=== PATIENT | male | born 1975 | race Caucasian/White ===

== ENCOUNTER 2020-08-03 18:23 | Emergency (ER) | payer OTHER, SELFPAY ==
[2020-08-03 19:19] VITALS: BP 140/98; PULSE 120; RESP 20; TEMP 36.3; O2SAT 98
[2020-08-03 19:41] LABS: Basophils Absolute Auto 0.1 K/mm3 (0.0-0.1); Basophils Percent Auto 0.6 % (0.2-1.2); Eosinophils Absolute Auto 0.4 K/mm3 (0-0.3); Eosinophils Percent Auto 5.2 % (0-4.4); Hematocrit 49.1 % (42.0-52.0); Hemoglobin 17.3 g/dL (14.0-18.0); Immature Granulocyte Absolute 0.02 K/mm3 (0.00-0.031); Immature Granulocyte Percent A 0.3 % (0-0.5); Lymphocytes Absolute Auto 2.52 K/mm3 (0.9-3.2); Lymphocytes Percent Auto 31.9 % (18.3-44.2); Mean Corpuscular HGB Conc 35.2 g/dl (32-36); Mean Platelet Volume 10.3 fl (7.4-10.4); Monocytes Absolute Auto 0.4 K/mm3 (0.1-0.6); Monocytes Percent Auto 5.1 % (2.6-8.5); Neutrophils Absolute Auto 4.5 K/mm3 (1.3-6.7); Neutrophils Percent Auto 56.9 % (45.5-73.1); Platelet Count Result 189 k/mm3 (150-375); Red Blood Count 5.58 M/mm3 (4.6-6.20); Red Cell Distribution Width 12.7 % (11.5-14.5); White Blood Count 7.9 K/mm3 (4.5-10.0)
[2020-08-03 19:53] LABS: Alanine Aminotransferase 154 U/L (4-50); Alkaline Phosphatase 97 U/L (38-126); Anion Gap 10 mmol/L (8-16); Aspartate Amino Transferase 70 U/L (17-59); Bilirubin,Total 1.3 mg/dL (0.2-1.3); Blood Urea Nitrogen 13 mg/dL (9-20); Calcium 10.2 mg/dL (8.4-10.2); Carbon Dioxide 28 mmol/L (22-30); Chloride 103 mmol/L (98-107); Estimated CRCL calculation 104 ml/min; Estimated Glomerular Filt Rate > 60; Ethanol < 10 mg/dL (<10); Glucose 149 mg/dL (75-110); Potassium 4.4 mmol/L (3.4-5.0); Sodium 141 mmol/L (137-145)
[2020-08-03 23:02] VITALS: BP 135/87; PULSE 70; RESP 16; TEMP 36.5; O2SAT 98
[2020-08-04] VITALS (11 sets, daily range): BP systolic 127–155; BP diastolic 68–99; PULSE 75–106; RESP 8–19; TEMP 36.6; O2SAT 97–100
--- NOTE | 2020-08-04 00:14 | PC.NURSE ---
pt blocking door from inside of room 1 at this time. ed staff unable to enter room at this time. research greenhouse supervisor notified at this time.
--- NOTE | 2020-08-04 00:18 | PC.NURSE ---
patient opened door at this time.
--- NOTE | 2020-08-04 00:36 | ED.PSYCH ---
HPI - Psych General Chief Complaint: Psychiatric Symptoms Stated Complaint: behavioral issues Time Seen by Provider: 08/04/20 00:35 History of Present Illness HPI Narrative: Pt c/o auditory hallucinations and not being able to sleep x 3 days. Pt also states that people are after me referring to how many friend requested him on facebook and how many hits his profile got on [employer]. Denies homicidal or suicidal ideations. Context: significant life stressor Related Data Allergies Allergy/AdvReac Type Severity Reaction Status Date / Time amoxicillin Allergy Mild Unverified 09/03/09 12:35 ibuprofen Allergy Mild Unverified 09/03/09 12:35 tramadol Allergy Mild Unverified 09/03/09 12:35 Review of Systems Review of Systems: All systems reviewed & are unremarkable except as noted in HPI and below Constitutional: Constitutional: Denies body ache(s), Denies chills, Denies excessive sweating, Denies fatigue, Denies fever(s), Denies headache(s), Denies lethargy, Denies malaise, Denies weakness and Denies weight loss Eyes: Eyes: Denies blurry vision, Denies change in vision and Denies loss of vision ENT: Denies dizziness, Denies ear discharge, Denies headache(s), Denies lip swelling, Denies epistaxis, Denies nasal congestion, Denies neck pain, Denies throat swelling and Denies tongue swelling Cardiovascular: Cardiovascular: Denies chest pain, Denies chest pain at rest, Denies chest pain with activity, Denies diaphoresis, Denies rapid heart rate, Denies edema, Denies irregular heart rhythm, Denies lightheadedness, Denies palpitations, Denies dyspnea and Denies dyspnea on exertion Respiratory: Respiratory: Denies chest congestion, Denies cough, Denies hemoptysis, Denies dyspnea and Denies dyspnea on exertion Gastrointestinal: Gastrointestinal: Denies abdominal pain, Denies melena, Denies hematochezia, Denies diarrhea, Denies nausea, Denies vomiting and Denies hematemesis Musculoskeletal: Musculoskeletal: Denies abnormal gait, Denies deformity, Denies joint swelling, Denies limited range of motion, Denies neck pain and Denies numbness Neurologic: Denies Abnormal speech present, Denies abnormal gait, Denies confusion, Denies dizziness, Denies headache(s), Denies focal weakness, Denies loss of vision, Denies numbness, Denies Other visual disturbances, Denies Sensory deficit (Neuro) and Denies weakness Psychiatric: Psychiatric: Denies homicidal ideation and Denies suicidal ideation Endocrine: Endocrine: Denies cold intolerance, Denies excessive sweating, Denies fatigue, Denies heat intolerance and Denies palpitations Hematologic/Lymphatic: Hematologic/Lymphatic: Denies easy bleeding and Denies easy bruising Allergic/Immunologic: Allergic/Immunologic: Denies lip swelling, Denies throat swelling and Denies tongue swelling [facility] Social History Social History Gender identity (if verbalized by the patient): Male Exam Const: General: healthy appearing, comfortable, well developed, alert and awake; No confusion Orientation/consciousness: oriented to person, oriented to place, oriented to time and No confusion Limitations: no limitations HENMT: Head: normal to inspection, normocephalic and atraumatic Ears: hearing grossly normal bilaterally, TM normal on the right and TM normal on the left General nose exam: Normal external nose present, Normal nares present and No nasal discharge present Face and sinus: normal facial exam Mouth: Yes Normal oral and palatal mucosa present, Yes lip normal, Yes tongue normal and Yes oropharynx normal Throat: posterior oropharynx normal, tonsils normal and uvula midline Eyes: General: appearance normal, both eyes and all related structures Pupils: Equal, round and reactive pupils present EOM: EOMs intact bilaterally Neck: Neck: normal visual inspection, full ROM, no lymphadenopathy and no meningeal signs Chest: Chest palpation & inspection: normal inspection of the chest Resp: Effort & Inspection: normal res
--- NOTE | 2020-08-04 01:06 | PC.NURSE ---
pt refusing to give urine sample at this time.
--- NOTE | 2020-08-04 02:30 | PC.NURSE ---
pt attempted to void in bathroom at this time, was unable. pt refusing catheter.
--- NOTE | 2020-08-04 03:47 | PC.NURSE ---
pt still unable to void. continues to refuse straight cath. edp made aware.
[2020-08-04 04:45] LABS: Barbiturate Screen Urine Positive (Negative); Benzodiazepines Screen Urine Negative (Negative)
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
[2020-08-04 05:01] LABS: Add Urine Microscopic? YES; Amorphous Sediment Urine Few; Appearance Urine Clear (Clear); Bilirubin Urine 1+ (Negative); Blood Urine Negative (Negative); Cannabinoid Screen Urine Positive (Negative); Cocaine Screen Urine Negative (Negative); Color Urine Amber (Yellow); Glucose Urine UA 1+ mg/dL (Negative); Ketones Urine Negative (Negative); Leukocyte Esterase Ur Negative LEU/UL (Negative); Methadone Screen Urine Negative (Negative); Mucus Urine Heavy /lpf; Nitrate Urine Negative (Negative); Opiate Screen Urine Positive (Negative); Phencyclidine Screen Urine Negative (Negative); Protein Urine 2+ mg/dL (Negative); WBC Urine 0-3 /hpf
[2020-08-04 05:06] LABS: Amphetamine Screen Urine Positive (Negative)
--- NOTE | 2020-08-04 07:10 | PC.NURSE ---
WHILE GETTING PT REPORT, PT IN ROOM WITH 2 SECURITY OFFICERS BACKED INTO A CORNER BARRICADED IN WITH X2 CHAIRS THAT WERE NOT REMOVED PRIOR TO THIS SHIFT. REFUSING TO ALLOW STAFF TO ASSESS HIM, REFUSING TO SIT ON THE BED. THREATENING STAFF.
--- NOTE | 2020-08-04 07:28 | PC.NURSE ---
VERBAL ORDER FROM TORI POWERS TO ADMINISTER 2MG ATIVAN INSTEAD OF 1MG IM. PT HAS CORNERED HIMSELF IN THE ROOM, TORI POWERS AT BEDSIDE ATTEMPTING TO CONVINCE PT TO ACCEPT IM ATIVAN.
--- NOTE | 2020-08-04 07:35 | PC.NURSE ---
PD AT BEDSIDE, PT STILL THREATENING STAFF WITH CHAIRS IN CORNER.
--- NOTE | 2020-08-04 07:35 | PC.NURSE ---
TORI POWERS VERBAL ORDER TO CALL MARYLOU ZAVALA TO HELP RESTRAIN PT. PD CONTACTED BY MANAGER PATIENT SUSIE AT THIS TIME.
--- NOTE | 2020-08-04 07:36 | PC.NURSE ---
SAUL RATLIFF X3, X2 PD, FOREMAN/PILE DRIVING AND ERECTION ALYSSA, MYSELF, JOSE, AND RASHID AKBAR AT BEDSIDE RESTRAINING PT WHO IS ATTEMPTING TO HARM STAFF.
[2020-08-04] MEDS: diphenhydrAMINE HCl INJ 50 MG/ML VIAL IM (07:46)
[2020-08-04] MEDS: LORazepam INJ (*CRX) 2 MG/ML VIAL IM (07:46)
[2020-08-04] MEDS: HALOPERIDOL LACTATE 5 MG/ML VIAL IM (07:46)
--- NOTE | 2020-08-04 08:08 | ECG_ITS ---
Measurements Intervals [place] Rate: 89 P: 61 [place]: 142 QRS: 55 QRSD: 122 T: 60 QT: 382 QTc: 467 Interpretive Statements SINUS RHYTHM INCOMPLETE RIGHT BUNDLE BRANCH BLOCK NONSPECIFIC ST ELEVATION IN ANTERIOR LEADS BORDERLINE ECG Electronically Signed On 08-04-2020 8:58:46 CDT by Stanley Law D.O.
--- NOTE | 2020-08-04 08:24 | PC.NURSE ---
covid swab sent to lab
--- NOTE | 2020-08-04 08:26 | PC.NURSE ---
chaparro from crisis states that she cannot begin calling for placement on pt until he is out of the restraints.
--- NOTE | 2020-08-04 08:46 | PC.NURSE ---
Addendum entered by Esteban Richter RN 08/04/20 08:46: TIME 0737 THAT CHAIRS AND SHOES REMOVED. Original Note: CHAIR REMOVED FROM PT ROOM, SHOES TAKEN FROM PT AND LOCKED WITH BELONGINGS. TECHNOLOGY EDUCATION INSTRUCTORNAOMIE BAILEY
[2020-08-04] MEDS: SODIUM CHLORIDE 0.9% IV 1,000 ML 999 ML IV CONT ×2 (08:59→09:43)
--- NOTE | 2020-08-04 09:45 | PC.NURSE ---
While assessing pt rom, attempted to remove restraints, upon removing the L leg restraint, pt waking up, kicking at staff, says take me out, see what happens. rom and psm assessed at this time, all extremities wnl.
--- NOTE | 2020-08-04 11:05 | PC.NURSE ---
PT RESTRAINTS REMOVED AT THIS TIME, NAOMIE MCMILLAN AND SECURITY AT BEDSIDE TO ASSIST. ALL EXTREMITIES, PSM INTACT. REPORT GIVEN BEDSIDE TO NAOMIE MCMILLAN, HE HAS ASSUMED PT CARE.
--- NOTE | 2020-08-04 11:20 | PC.NURSE ---
Received report from NAOMIE Orellana at this time.
--- NOTE | 2020-08-04 11:26 | PC.NURSE ---
Pt asleep in bed, restrained removed by previous RN. security at bedside. Pt continues to be on cardiac/spo2 monitor. Will continue to monitor.
--- NOTE | 2020-08-04 12:46 | PC.NURSE ---
Pt asleep in bed, staff sitter at bedside. Lunch ordered for pt and set on counter in room for if pt wakes up.
--- NOTE | 2020-08-04 14:28 | PC.NURSE ---
block trader took call from Mitali from Crisis called, gave fax number to Federal parole office to fax pt chart ([phone]) as pt is in violation of federal parole. Chart faxed per chart RN request.
--- NOTE | 2020-08-04 15:20 | PC.NURSE ---
Pt asleep in room, no s/s of distress, chest rise/fall evenly. Security at bedside for pt safety. Will continue to monitor.
--- NOTE | 2020-08-04 17:31 | PC.NURSE ---
Pt remains asleep with out distress. Staff sitter remains at bedside. Will continue to monitor.
[2020-08-04 20:04] LABS: SARS-CoV-2 RNA PCR Negative
--- NOTE | 2020-08-04 20:25 | PC.NURSE ---
Pt asleep in bed, staff at bedside. no s/s of distress. will continue to monitor.
--- NOTE | 2020-08-04 21:00 | PC.NURSE ---
Pt awoke and ripped his IV out stating I dont need this. Pt given lunch tray and soda. Security remains outside pt room. Will continue to monitor.
--- NOTE | 2020-08-04 21:51 | PC.NURSE ---
attempting to contact pt significant other without success. pt gave [phone] for contact info to girlfriend
--- NOTE | 2020-08-04 22:55 | PC.NURSE ---
PT ASLEEP IN BED, SPOKE WITH PT FRIEND PER PT REQUEST TO LET HER KNOW HE IS IN THE ED. STAFF REMAIN AT BEDSIDE.
--- NOTE | 2020-08-05 03:35 | PC.NURSE ---
PT RESTING QUIETLY IN BED WITH EYES CLOSED, NO ACUTE DISTRESS NOTED. 2 SECURITY GUARDS REMAIN AT THE DOORWAY.
--- NOTE | 2020-08-05 05:15 | PC.NURSE ---
NO ACUTE DISTRESS NOTED; PT RESTING QUIETLY IN BED WITH EYES CLOSED. TRAILER DRIVER REMAINS AT DOORWAY.
[2020-08-05 06:34] VITALS: BP 170/79; PULSE 94; RESP 18; TEMP 37.3; O2SAT 99
--- NOTE | 2020-08-05 08:38 | PC.NURSE ---
Addendum entered by Vane Yang RN 08/05/20 08:41: REPORT RECEIVED AT 0715. Original Note: REPORT RECEIVED AND CARE ASSUMED. PT IS SLEEPING AT THIS TIME. RESPS EVEN AND NONLABORED. LIGHTS DIMMED. SECURITY OFFICERS X2 REMAIN AT BEDSIDE FOR OBSERVATION. AWAITING CALL BACK FROM BRENDA FROM CRISIS REGARDING FEDERAL DISPOSITION OF THE PATIENT
[2020-08-05 11:30] VITALS: BP 106/75; PULSE 86; RESP 16; O2SAT 100
[2020-08-05 15:15] VITALS: BP 122/81; PULSE 88; RESP 18; TEMP 36.7; O2SAT 98
--- NOTE | 2020-08-05 19:15 | PC.NURSE ---
PT REFUSING NEW SET OF VITAL SIGNS.
--- NOTE | 2020-08-05 20:00 | PC.NURSE ---
REPORT TO TATO AKBAR. CARE TRANSFERRED
--- NOTE | 2020-08-05 23:04 | PC.NURSE ---
per Eric at [facility], a CBC and CMP is needed to be redrawn since last labs were over 24 hrs old. He states a new ua / uds is not needed. I repeated this back to him & he verbalized it was correct. Dr. Mosqueda made aware, vorb for cbc, cmp. Orders placed in computer.
[2020-08-05 23:23] LABS: Basophils Percent Auto 0.4 % (0.2-1.2); Eosinophils Absolute Auto 0.2 K/mm3 (0-0.3); Eosinophils Percent Auto 2.8 % (0-4.4); Hematocrit 43.7 % (42.0-52.0); Hemoglobin 15.8 g/dL (14.0-18.0); Immature Granulocyte Absolute 0.01 K/mm3 (0.00-0.031); Immature Granulocyte Percent A 0.1 % (0-0.5); Lymphocytes Percent Auto 29.1 % (18.3-44.2); Mean Corpuscular HGB Conc 36.2 g/dl (32-36); Mean Corpuscular Hemoglobin 31.3 pg (26-34); Mean Corpuscular Volume 86.5 fl (80-100); Mean Platelet Volume 10.2 fl (7.4-10.4); Monocytes Absolute Auto 0.4 K/mm3 (0.1-0.6); Monocytes Percent Auto 4.6 % (2.6-8.5); Neutrophils Absolute Auto 4.8 K/mm3 (1.3-6.7); Platelet Count Result 154 k/mm3 (150-375); Red Blood Count 5.05 M/mm3 (4.6-6.20); Red Cell Distribution Width 12.4 % (11.5-14.5); White Blood Count 7.6 K/mm3 (4.5-10.0)
[2020-08-05 23:34] LABS: Alanine Aminotransferase 113 U/L (4-50); Albumin Level 4.1 g/dL (3.5-5.1); Alkaline Phosphatase 78 U/L (38-126); Anion Gap 10 mmol/L (8-16); Aspartate Amino Transferase 68 U/L (17-59); Bilirubin,Total 1.3 mg/dL (0.2-1.3); Blood Urea Nitrogen 10 mg/dL (9-20); Calcium 9.3 mg/dL (8.4-10.2); Carbon Dioxide 23 mmol/L (22-30); Chloride 104 mmol/L (98-107); Estimated CRCL calculation 135 ml/min; Estimated Glomerular Filt Rate > 60; Glucose 86 mg/dL (75-110); Potassium 4.1 mmol/L (3.4-5.0); Sodium 137 mmol/L (137-145)
[2020-08-05 23:36] VITALS: BP 112/73; PULSE 101; RESP 20; TEMP 37; O2SAT 98
--- NOTE | 2020-08-06 00:53 | PC.NURSE ---
maria g from [facility] requested to have new results faxed to him. after he gets that he will try to get a bed, however the dr that is press set up person emily does not answer the phone so they wont have an excepting until around 0620 in the morning.
--- NOTE | 2020-08-06 04:29 | PC.NURSE ---
Staff member from [facility] asking that we get an updated petition completed & faxed to them prior to leaving this facility.
[2020-08-06 07:08] VITALS: BP 128/97; PULSE 89; RESP 18; TEMP 37.5; O2SAT 97
[2020-08-06 07:11] VITALS: BP 128/97; PULSE 89; RESP 18; O2SAT 97
== END 2020-08-06 07:39 ==
PROVIDERS: Emergency Medicine; Emergency Provider Emergency Medicine
DX: F23 Brief psychotic disorder (principal); F22 Delusional disorders; Z20.828 Contact with and (suspected) exposure to other viral communicable diseases
CPT/HCPCS: 36415; 80053; 80307; 81001; 84443; 85025; 87635; 93005; 96360; 96361; 96372; 99285; C9803; J1200; J1630; J2060; J7030; U0003

== ENCOUNTER 2020-11-14 14:48 | Emergency (ER) | payer OTHER, SELFPAY ==
[2020-11-14 14:50] VITALS: BP 155/99; PULSE 88; RESP 18; TEMP 37; O2SAT 99
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
--- NOTE | 2020-11-14 14:55 | ECG_ITS ---
Measurements Intervals [place] Rate: 84 P: 52 [place]: 144 QRS: 16 QRSD: 101 T: 47 QT: 371 QTc: 439 Interpretive Statements SINUS RHYTHM INCOMPLETE RIGHT BUNDLE BRANCH BLOCK BASELINE ARTIFACT- I, II, AVR BORDERLINE ECG Electronically Signed On 11-15-2020 8:25:12 FORENSIC IDENTIFICATION SPECIALIST by Stanley Law D.O.
[2020-11-14 15:22] LABS: Basophils Absolute Auto 0.03 K/mm3 (0.00-0.10); Basophils Percent Auto 0.4 % (0.0-1.0); Eosinophils Absolute Auto 0.16 K/mm3 (0.02-0.50); Eosinophils Percent Auto 2.3 % (1.0-6.0); Hematocrit 44.5 % (40.0-54.0); Hemoglobin 15.3 g/dL (14.0-18.0); Immature Granulocyte Absolute 0.02 K/mm3 (0.00-0.00); Immature Granulocyte Percent A 0.3 % (0.0-0.0); Lymphocytes Absolute Auto 2.59 K/mm3 (1.10-4.50); Mean Corpuscular HGB Conc 34.4 g/dL (32.0-36.0); Mean Corpuscular Volume 90.1 fL (78.0-102.0); Mean Platelet Volume 9.8 fl (8.7-11.0); Monocytes Absolute Auto 0.44 K/mm3 (0.10-0.90); Monocytes Percent Auto 6.5 % (2.0-11.0); Neutrophils Absolute Auto 3.6 K/mm3 (1.7-7.2); Neutrophils Percent Auto 52.5 % (50.0-70.0); Platelet Count Result 228 K/mm3 (150-420); Red Blood Count 4.94 M/mm3 (4.70-6.10); Red Cell Distribution Width 12.2 % (11.6-14.4); White Blood Count 6.8 K/mm3 (4.8-10.8)
[2020-11-14 15:42] LABS: Alanine Aminotransferase 107 U/L (16-63); Albumin Level 4.3 g/dL (3.4-5.0); Alkaline Phosphatase 89 U/L (46-116); Anion Gap 10 mmol/L (8-16); Aspartate Amino Transferase 48 U/L (15-37); Bilirubin,Total 0.9 mg/dL (0.00-1.00); Calcium 9.8 mg/dL (8.5-10.1); Carbon Dioxide 26 mmol/L (21-32); Chloride 101 mmol/L (98-108); Estimated CRCL calculation 101 ml/min; Estimated Glomerular Filt Rate > 60; Glucose 94 mg/dL (70-99); Osmolality Calculated 283 mOsm/kg (285-295); Potassium 3.5 mmol/L (3.5-5.1); Salicylate 3.6 mg/dL (2.8-20.0); Sodium 137 mmol/L (136-145); Thyroid Stimulating Hormone 1.63 uIU/mL (0.36-3.74); Total Protein 9.4 g/dL (6.4-8.2)
[2020-11-14 15:50] LABS: Acetaminophen < 2 ug/mL (10-30); Ethanol < 3 mg/dL (0-6)
[2020-11-14 15:55] LABS: Blood Urea Nitrogen 11 mg/dL (7-18)
[2020-11-14 16:44] VITALS: BP 147/96; PULSE 88; RESP 16; O2SAT 99
[2020-11-14 16:52] LABS: Add Urine Microscopic? YES; Appearance Urine Clear (Clear); Bilirubin Urine 1+ (Negative); Blood Urine Negative (Negative); Color Urine Yellow (Yellow); Glucose Urine UA Negative (Negative); Ketones Urine 1+ (Negative); Leukocyte Esterase Ur Negative LEU/UL (Negative); Nitrate Urine Negative (Negative); Protein Urine Trace (Negative); Specific Grav Ur >= 1.030 (1.010-1.020)
[2020-11-14 16:57] LABS: Amphetamine Screen Urine Positive (Negative); Barbiturate Screen Urine Positive (Negative); Benzodiazepines Screen Urine Negative (Negative); Cannabinoid Screen Urine Negative (Negative); Cocaine Screen Urine Negative (Negative); Methadone Screen Urine Negative (Negative); Opiate Screen Urine Negative (Negative); Phencyclidine Screen Urine Negative (Negative)
[2020-11-14 17:02] LABS: RBC Urine 0-2 /hpf (0-2); Squamous Epithelial Cell Urine None seen /hpf (Few); WBC Urine 0-3 /hpf (0-3)
[2020-11-14 17:03] LABS: Bacteria Urine 2+ /hpf; Mucus Urine Heavy /lpf
--- NOTE | 2020-11-14 17:14 | PC.NURSE ---
Pt resting quietly on stretcher.
--- NOTE | 2020-11-14 18:44 | PC.NURSE ---
pt resting comfortably on stretcher, friend brought pt milk shake and hardees. pt states he does not want it. meal placed on tray table. pt on cell phone. awaiting juan from mental health
--- NOTE | 2020-11-14 19:13 | PC.NURSE ---
juan from mental health at bedside speaking with pt.
--- NOTE | 2020-11-14 19:13 | PC.NURSE ---
report to jamia childs
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
[2020-11-14 20:55] VITALS: BP 133/75; PULSE 85; RESP 20; TEMP 36.6; O2SAT 99
== END 2020-11-14 21:12 | disposition home or self-care (01) ==
PROVIDERS: Emergency Provider Emergency Medicine
DX: R45.851 Suicidal ideations (principal); F20.9 Schizophrenia, unspecified
CPT/HCPCS: 36415; 80053; 80307; 81001; 84443; 85025; 93005; 99284

== ENCOUNTER 2023-10-18 21:00 | Emergency (ER) | payer OTHER, SELFPAY ==
--- NOTE | 2023-10-18 21:05 | ED.SKABFB ---
HPI - Skin/Abscess/Foreign Bdy General Chief complaint: Wound/Laceration Stated complaint: wound to l ue, swelling and redness Time Seen by Provider: 10/18/23 21:04 Source: patient Mode of arrival: ambulatory Limitations: no limitations History of Present Illness HPI narrative: 48-year-old male with a history of schizophrenia presents to the ER with a 3 day history of -- left anterior arm swelling with erythema. The erythema extends to the forearm and the back of the arm and forearm. No significant pain. The patient denies using any IV injectables. 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 No fever or chills. The patient made a 2 cm superficial laceration over the lateral swelling hoping to drain out the infection. Patient has a history of recurrent cellulitis. He has a prior history of MRSA. MD complaint: lesion ( Left anterior 10 cmX10 cm erythematous swelling) Onset (ago): day(s) ( 3 days) Tetanus up to date: yes Location: LUE Severity: mild Quality: aching and other ( ) Pain Consistency: constant Relieving factors: none Exacerbating factors: none Context: none Associated symptoms: denies other symptoms Treatments prior to arrival: none Related Data Allergies Allergy/AdvReac Type Severity Reaction Status Date / Time amoxicillin Allergy Mild Rash Verified 10/18/23 21:39 Review of Systems Review of Systems: All systems reviewed & are unremarkable except as noted in HPI and below Constitutional: Constitutional: Reports as per HPI and Reports no additional constitutional complaints Eyes: Eyes: Reports as per HPI and Reports no additional eye complaints ENT: Reports system reviewed and no additional complaints, except as documented and Reports as per HPI Cardiovascular: Cardiovascular: Reports as per HPI and Reports no additional cardiovascular complaints Respiratory: Respiratory: Reports as per HPI and Reports no additional respiratory complaints Gastrointestinal: Gastrointestinal: Reports as per HPI and Reports no additional gastrointestinal complaints Genitourinary: Genitourinary: Reports no additional male genitourinary complaints and Reports as per HPI Musculoskeletal: Musculoskeletal: Reports no additional musculoskeletal complaints and Reports as per HPI Integumentary/Breasts: Skin/Breast: Reports system reviewed and no additional complaints, except as docu and Reports as per HPI Comments: left Arm swelling which is erythematous /swollen and tender. the erythema extends to the forearm and the back of the upper extremity. Neurologic: Reports system reviewed and no additional complaints, except as documented and Reports as per HPI Psychiatric: Psychiatric: Reports no additional psychiatric complaints and Reports as per HPI Endocrine: Endocrine: Reports no additional endocrine complaints and Reports as per HPI Hematologic/Lymphatic: Hematologic/Lymphatic: Reports no additional hematologic/lymphatic complaints and Reports as per HPI Allergic/Immunologic: Allergic/Immunologic: Reports no additional allergic/immunologic complaints and Reports as per HPI [facility] Past Medical History Medical History Schizophrenia Social History Social History Smoking status: Current every day smoker Alcohol intake: former Substance use: current Substance use type: amphetamines Living arrangements: with friend(s) Gender identity (if verbalized by the patient): Male Exam Narrative: hypertension with a blood pressure of 139/101. Subsequent readings are noted to be normal Const: General: no acute distress Orientation/consciousness: patient oriented x3 Limitations: no limitations HENMT: Head: normal to inspection Ears: external ears normal Face/Nose/Sinus: Normal external nose present Face and sinus: normal facial exam Mouth: Yes Normal oral and palat
[2023-10-18 21:06] VITALS: BP 139/101; PULSE 101; RESP 20; TEMP 37.1; O2SAT 99
[2023-10-18 21:31] LABS: Basophils Absolute Auto 0.03 K/mm3 (0.00-0.10); Basophils Percent Auto 0.3 % (0.0-1.0); Hemoglobin 14.4 g/dL (14.0-18.0); Immature Granulocyte Absolute 0.04 K/mm3 (0.00-0.00); Immature Granulocyte Percent A 0.4 % (0.0-0.0); Lymphocytes Absolute Auto 1.91 K/mm3 (1.10-4.50); Lymphocytes Percent Auto 20.4 % (18.0-42.0); Mean Corpuscular HGB Conc 34.3 g/dL (32.0-36.0); Mean Corpuscular Hemoglobin 30.8 pg (27.0-31.0); Mean Corpuscular Volume 89.9 fL (78.0-102.0); Mean Platelet Volume 9.4 fl (8.7-11.0); Monocytes Percent Auto 5.3 % (2.0-11.0); Neutrophils Absolute Auto 6.9 K/mm3 (1.7-7.2); Neutrophils Percent Auto 73.6 % (50.0-70.0); Platelet Count Result 157 K/mm3 (150-420); Red Blood Count 4.67 M/mm3 (4.70-6.10); Red Cell Distribution Width 12.8 % (11.6-14.4); White Blood Count 9.4 K/mm3 (4.8-10.8)
[2023-10-18 21:45] LABS: Alanine Aminotransferase 81 U/L (16-63); Albumin Level 3.3 g/dL (3.4-5.0); Alkaline Phosphatase 77 U/L (46-116); Anion Gap 6 mmol/L (8-16); Aspartate Amino Transferase 29 U/L (15-37); Bilirubin,Total 0.9 mg/dL (0.00-1.00); Blood Urea Nitrogen 7 mg/dL (7-18); Calcium 8.7 mg/dL (8.5-10.1); Carbon Dioxide 28 mmol/L (21-32); Chloride 101 mmol/L (98-108); Estimated Glomerular Filt Rate > 60; Glucose 94 mg/dL (70-99); Osmolality Calculated 278 mOsm/kg (285-295); Potassium 3.4 mmol/L (3.5-5.1); Sodium 135 mmol/L (136-145); Total Protein 7.2 g/dL (6.4-8.2)
[2023-10-18 21:50] LABS: Lactic Acid Reflex 1.1 mmol/L (0.4-2.0)
[2023-10-18 22:03] VITALS: BP 124/85
[2023-10-18] MEDS: CLINDAMYCIN HCL 150 MG CAP 300 MG PO (22:53)
[2023-10-18] MEDS: methylPREDNISolone SOD SUCC 125 MG VIAL IM (22:54)
[2023-10-18 22:57] VITALS: BP 130/101; PULSE 101; RESP 18; TEMP 37.2; O2SAT 99
--- NOTE | 2023-10-25 12:24 | PC.NURSE ---
blood culture reviewed, no growth noted
== END 2023-10-18 23:01 | disposition home or self-care (01) ==
PROVIDERS: Emergency Provider Internal Medicine Critical Care Medicine; PCP Family Medicine
DX: L03.114 Cellulitis of left upper limb (principal); T78.40XA Allergy, unspecified, initial encounter; F17.200 Nicotine dependence, unspecified, uncomplicated
CPT/HCPCS: 36415; 80053; 83605; 85025; 87040; 96372; 99283; A9270; J2930

== ENCOUNTER 2024-01-14 20:25 | Emergency (ER) | payer OTHER, SELFPAY ==
[2024-01-14] VITALS (30 sets, daily range): BP systolic 117–140; BP diastolic 81–108; PULSE 86–119; RESP 13–32; TEMP 36.4; O2SAT 98–100
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
--- NOTE | 2024-01-14 20:27 | PC.NURSE ---
[facility]
--- NOTE | 2024-01-14 20:38 | PC.NURSE ---
Multiple failed attempts for IV access. Dr. Schwarz aware and at bedside
[2024-01-14] MEDS: SODIUM CHLORIDE 0.9% IV 1,000 ML 999 ML IV CONT ×2 (20:52→21:30)
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
[2024-01-14 21:17] LABS: Basophils Absolute Auto 0.06 K/mm3 (0.00-0.10); Basophils Percent Auto 0.6 % (0.0-1.0); Eosinophils Absolute Auto 0.01 K/mm3 (0.02-0.50); Eosinophils Percent Auto 0.1 % (1.0-6.0); Hematocrit 40.1 % (40.0-54.0); Hemoglobin 13.4 g/dL (14.0-18.0); Immature Granulocyte Absolute 0.04 K/mm3 (0.00-0.00); Immature Granulocyte Percent A 0.4 % (0.0-0.0); Lymphocytes Absolute Auto 3.34 K/mm3 (1.10-4.50); Mean Corpuscular HGB Conc 33.4 g/dL (32.0-36.0); Mean Corpuscular Hemoglobin 29.4 pg (27.0-31.0); Mean Corpuscular Volume 87.9 fL (78.0-102.0); Monocytes Absolute Auto 0.57 K/mm3 (0.10-0.90); Monocytes Percent Auto 6.1 % (2.0-11.0); Neutrophils Absolute Auto 5.3 K/mm3 (1.7-7.2); Neutrophils Percent Auto 56.8 % (50.0-70.0); Platelet Count Result 222 K/mm3 (150-420); Red Blood Count 4.56 M/mm3 (4.70-6.10); Red Cell Distribution Width 13.3 % (11.6-14.4); White Blood Count 9.3 K/mm3 (4.8-10.8)
[2024-01-14] MEDS: HYDROmorphone HCL INJ (*CRX) 2 MG/ML VIAL 0.5 MG IV PUSH ×2 (21:25→22:47)
[2024-01-14] MEDS: LIDOCAINE HCL 1% LOCAL INJ 10 ML VIAL INFILTRATE (21:31)
[2024-01-14 21:32] LABS: Alanine Aminotransferase 174 U/L (16-63); Alkaline Phosphatase 87 U/L (46-116); Anion Gap 8 mmol/L (8-16); Aspartate Amino Transferase 77 U/L (15-37); Bilirubin,Total 0.6 mg/dL (0.00-1.00); Blood Urea Nitrogen 12 mg/dL (7-18); Calcium 8.2 mg/dL (8.5-10.1); Carbon Dioxide 26 mmol/L (21-32); Chloride 107 mmol/L (98-108); Estimated CRCL calculation 86 ml/min; Estimated Glomerular Filt Rate > 60; Glucose 100 mg/dL (70-99); Osmolality Calculated 291 mOsm/kg (285-295); Potassium 3.5 mmol/L (3.5-5.1); Sodium 141 mmol/L (136-145); Total Protein 6.6 g/dL (6.4-8.2)
--- NOTE | 2024-01-14 21:32 | PC.NURSE ---
[facility] Tari[facility] at [facility]
[2024-01-14 21:34] LABS: Ethanol < 3 mg/dL (0-6)
[2024-01-14] MEDS: LINEZOLID 600 MG/300 ML 600 MG/300 ML SOLN 300 MG IVPB (21:37)
--- NOTE | 2024-01-14 21:41 | PC.NURSE ---
Dr. Schwarz closed right shoulder lac with 9 amaris
--- NOTE | 2024-01-14 23:14 | PC.NURSE ---
2245: Dr. Schwarz at bedside, discussing potential for pt transfer to a trauma center. Pt adamantly refusing, stating I'm not going to be sent to any more hospitals. If you won't stitch it up, then I will leave and go somewhere that will . Pt agreeable to IV, meds, imaging, and wound cleansing here at this time.
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
[2024-01-15] VITALS (13 sets, daily range): BP systolic 123–138; BP diastolic 83–101; PULSE 92–104; RESP 13–19; TEMP 36.6; O2SAT 98–100
--- NOTE | 2024-01-15 00:17 | PC.NURSE ---
0010 While PD was in the room, speaking with the patient, Pt heard yelling in his room from the nurse's station. This RN, Angel AKBAR, and Dr. Schwarz at bedside. Pt very agitated, standing at the edge of the bed and ripping the monitor off of himself. Pt stating that he is going to walk out. RN asked pt to please sit down on the bed so that we can remove his central line, in that case. Pt agreeable to sit back down on the bed. After a few moments, pt calms down and agrees that he will not leave at this time. Again, Dr. Schwarz asking the patient if he would be agreeable for transfer. Pt states that he needs more time to think about it.
--- NOTE | 2024-01-15 00:59 | PC.NURSE ---
0040: After lengthy discussion with the patient regarding risks vs benefits of signing out AMA or transferring, pt is agreeable for transfer to a trauma center. Pt requesting he go to a trauma center in [place] as opposed to [place].
== END 2024-01-15 01:29 | disposition short-term general hospital (02) ==
PROVIDERS: Emergency Provider Emergency Medicine
DX: S41.011A Laceration without foreign body of right shoulder, initial encounter (principal); F17.200 Nicotine dependence, unspecified, uncomplicated; X99.1XXA Assault by knife, initial encounter
CPT/HCPCS: 12004; 36415; 36556; 71260; 80053; 80307; 85025; 86850; 86900; 86901; 96361; 96365; 96375; 96376; 99285; A4565; C1751; J1170; J2020; J7030; Q9967